=== PATIENT | male | born 1975 | race Caucasian/White ===

== ENCOUNTER 2017-02-04 10:02 | Outpatient (CLI) | payer OTHER ==
[2017-02-04 10:50] LABS: ALBUMIN/GLOBULIN RATIO 1.5 (1.0-2.2); BILIRUBIN,TOTAL 0.7 mg/dL (0.2-1.0); BUN - BLOOD UREA NITROGEN 20 mg/dL (6-20); CALCIUM 9.1 mg/dL (8.5-10.3); CARBON DIOXIDE - CO2 28 mmol/L (21-32); CHLORIDE 104 mmol/L (101-111); CHOL/HDL RATIO 4.9 (<5.0); CHOLESTEROL 212 mg/dL; CREATININE 0.8 mg/dL (0.6-1.2); GFR - MDRD 106 (>89); GLUCOSE 134 mg/dL (70-100); HDL CHOLESTEROL 43 mg/dL; LDL/HDL RATIO 3.5 (<3.6); SODIUM 139 mmol/L (135-145); TOTAL PROTEIN 7.7 g/dL (6.7-8.2); TRIGLYCERIDES 101 mg/dL; VLDL CHOLESTEROL 20 mg/dL
[2017-02-04 10:53] LABS: BASOPHILS # (AUTO) 0.1 10^3/uL (0.0-0.1); BASOPHILS % (AUTO) 0.8 %; EOSINOPHILS # (AUTO) 0.3 10^3/uL (0.0-0.7); EOSINOPHILS % (AUTO) 3.2 %; HCT - HEMATOCRIT 41.6 % (42.0-52.0); HGB - HEMOGLOBIN 14.3 g/dL (14.0-18.0); LYMPHOCYTES # (AUTO) 2.7 10^3/uL (1.5-3.5); LYMPHOCYTES % (AUTO) 35.3 %; MEAN CORPUSCULAR HGB CONC 34.4 g/dL (32.0-36.0); MEAN CORPUSCULAR VOLUME 84.3 fL (80.0-94.0); MEAN PLATELET VOLUME 8.8 fL (7.4-11.4); MONOCYTES # (AUTO) 0.7 10^3/uL (0.0-1.0); MONOCYTES % (AUTO) 9.1 %; NEUTROPHILS % (AUTO) 51.6 %; RED BLOOD COUNT 4.93 10^6/uL (4.70-6.10); RED CELL DISTRIBUTION WIDTH 12.8 % (12.0-15.0); UNCORRECTED WHITE BLOOD COUNT 7.8 x10^3/uL; WHITE BLOOD COUNT 7.8 x10^3/uL (4.8-10.8)
[2017-02-04 11:12] LABS: HEMOGLOBIN A1C 0.84 g/dL
== END 2017-02-04 10:03 | disposition home or self-care (01) ==
LOC: LAB 10:02
PROVIDERS: ATTEND Physician Assistant Medical
DX: R19.7 Diarrhea, unspecified (principal); E78.2 Mixed hyperlipidemia
CPT/HCPCS: 36415; 80053; 80061; 83036; 85025; 85651; 86140

== ENCOUNTER 2017-02-06 08:00 | Outpatient (CLI) | payer OTHER ==
[2017-02-08 22:31] LABS: TEST RESULT REPORT (())
== END 2017-02-06 08:01 | disposition home or self-care (01) ==
LOC: LAB.R 08:00
PROVIDERS: ATTEND Physician Assistant Medical
DX: R19.7 Diarrhea, unspecified (principal); E78.2 Mixed hyperlipidemia
CPT/HCPCS: 81599; 82705; 83630; 87045; 87046; 87177; 87209; 87329; 87493

== ENCOUNTER 2017-06-05 11:17 | Outpatient (CLI) | payer OTHER ==
[2017-06-05 11:48] LABS: HEMOGLOBIN A1C 1.13 g/dL
== END 2017-06-05 11:18 | disposition home or self-care (01) ==
LOC: LAB 11:17
PROVIDERS: ATTEND Physician Assistant Medical
DX: E11.9 Type 2 diabetes mellitus without complications (principal)
CPT/HCPCS: 36415; 83036

== ENCOUNTER 2017-09-30 08:57 | Outpatient (CLI) | payer OTHER ==
[2017-09-30 09:45] LABS: HB2 TOTAL 15.8 g/dL; HEMOGLOBIN A1C 0.81 g/dL; HEMOGLOBIN A1C % 6.8 % (4.6-6.2)
[2017-09-30 09:52] LABS: ALBUMIN 4.5 g/dL (3.2-5.5); ALBUMIN/GLOBULIN RATIO 1.4 (1.0-2.2); BILIRUBIN,TOTAL 0.9 mg/dL (0.2-1.0); CALCIUM 9.5 mg/dL (8.5-10.3); CREATININE 0.9 mg/dL (0.6-1.2); TOTAL PROTEIN 7.8 g/dL (6.7-8.2)
== END 2017-09-30 08:58 | disposition home or self-care (01) ==
LOC: LAB 08:57
PROVIDERS: ATTEND Physician Assistant Medical
DX: R22.0 Localized swelling, mass and lump, head (principal); R03.0 Elevated blood-pressure reading, without diagnosis of hypertension; E11.9 Type 2 diabetes mellitus without complications
CPT/HCPCS: 36415; 80053; 83036

== ENCOUNTER 2017-12-23 08:47 | Outpatient (CLI) | payer OTHER ==
[2017-12-23 15:58] LABS: ALBUMIN 4.5 g/dL (3.2-5.5); ALBUMIN/GLOBULIN RATIO 1.3 (1.0-2.2); ALKALINE PHOSPHATASE 56 IU/L (42-121); ALT ALANINE AMINOTRANSFERASE 31 IU/L (10-60); AST ASPARTATE AMINOTRANSFERASE 22 IU/L (10-42); BILIRUBIN,TOTAL 0.8 mg/dL (0.2-1.0); BUN - BLOOD UREA NITROGEN 19 mg/dL (6-20); CALCIUM 9.5 mg/dL (8.5-10.3); CARBON DIOXIDE - CO2 26 mmol/L (21-32); CHLORIDE 100 mmol/L (101-111); CHOL/HDL RATIO 5.2 (<5.0); CHOLESTEROL 241 mg/dL; CREATININE 0.8 mg/dL (0.6-1.2); GFR - MDRD 105 (>89); GLUCOSE 148 mg/dL (70-100); HDL CHOLESTEROL 46 mg/dL; LDL CHOLESTEROL,CALCULATED 165 mg/dL; LDL/HDL RATIO 3.6 (<3.6); SODIUM 135 mmol/L (135-145); TOTAL PROTEIN 7.9 g/dL (6.7-8.2); VLDL CHOLESTEROL 30 mg/dL
[2017-12-23 16:05] LABS: BASOPHILS # (AUTO) 0.1 10^3/uL (0.0-0.1); BASOPHILS % (AUTO) 1.2 %; EOSINOPHILS # (AUTO) 0.4 10^3/uL (0.0-0.7); EOSINOPHILS % (AUTO) 4.5 %; HGB - HEMOGLOBIN 14.5 g/dL (14.0-18.0); LYMPHOCYTES # (AUTO) 2.7 10^3/uL (1.5-3.5); LYMPHOCYTES % (AUTO) 34.8 %; MEAN CORPUSCULAR HEMOGLOBIN 28.3 pg (27.0-31.0); MEAN CORPUSCULAR HGB CONC 33.5 g/dL (32.0-36.0); MEAN CORPUSCULAR VOLUME 84.4 fL (80.0-94.0); MEAN PLATELET VOLUME 9.5 fL (7.4-11.4); MONOCYTES # (AUTO) 0.8 10^3/uL (0.0-1.0); MONOCYTES % (AUTO) 9.9 %; NEUTROPHILS # (AUTO) 3.9 10^3/uL (1.5-6.6); NEUTROPHILS % (AUTO) 49.6 %; PLT - PLATELET COUNT 271 10^3/uL (130-450); RED BLOOD COUNT 5.14 10^6/uL (4.70-6.10); RED CELL DISTRIBUTION WIDTH 12.6 % (12.0-15.0); WHITE BLOOD COUNT 7.8 x10^3/uL (4.8-10.8)
[2017-12-23 16:35] LABS: HB2 TOTAL 16.4 g/dL; HEMOGLOBIN A1C 0.98 g/dL; HEMOGLOBIN A1C % 7.6 % (4.6-6.2)
== END 2017-12-23 08:48 | disposition home or self-care (01) ==
LOC: LAB.R 08:47
PROVIDERS: ATTEND Physician Assistant Medical
DX: Z00.00 Encounter for general adult medical examination without abnormal findings (principal); Z79.899 Other long term (current) drug therapy; E78.2 Mixed hyperlipidemia; E11.9 Type 2 diabetes mellitus without complications
CPT/HCPCS: 80053; 80061; 83036; 83721; 84443; 85025

== ENCOUNTER 2018-04-28 09:53 | Outpatient (CLI) | payer OTHER ==
[2018-04-28 14:12] LABS: BILIRUBIN,URINE NEGATIVE (NEGATIVE); CLARITY,URINE CLEAR (CLEAR); GLUCOSE, URINE (UA) NEGATIVE (NEGATIVE); KETONES,URINE (UA) NEGATIVE (NEGATIVE); LEUKOCYTE ESTERASE, URINE NEGATIVE (NEGATIVE); NITRITE,URINE NEGATIVE (NEGATIVE); OCCULT BLOOD,URINE TRACE-LYSE (NEGATIVE); PROTEIN,URINE NEGATIVE (NEGATIVE); UROBILINOGEN,URINE 0.2 (NORMAL) E.U./dL (NORMAL)
[2018-04-28 14:58] LABS: HB2 TOTAL 14.8 g/dL; HEMOGLOBIN A1C 0.78 g/dL
== END 2018-04-28 09:54 | disposition home or self-care (01) ==
LOC: LAB.R 09:53
PROVIDERS: ATTEND Physician Assistant Medical
DX: Z00.00 Encounter for general adult medical examination without abnormal findings (principal); E11.9 Type 2 diabetes mellitus without complications; Z79.899 Other long term (current) drug therapy
CPT/HCPCS: 81001; 81003; 82947; 83036; 87086

== ENCOUNTER 2018-11-24 11:05 | Outpatient (CLI) | payer OTHER ==
[2018-11-24 17:20] LABS: ALBUMIN 4.3 g/dL (3.2-5.5); ALBUMIN/GLOBULIN RATIO 1.3 (1.0-2.2); BILIRUBIN,TOTAL 0.6 mg/dL (0.2-1.0); CREATININE 0.8 mg/dL (0.6-1.2); TOTAL PROTEIN 7.5 g/dL (6.7-8.2)
[2018-11-24 18:47] LABS: HB2 TOTAL 15.6 g/dL; HEMOGLOBIN A1C 0.93 g/dL; HEMOGLOBIN A1C % 7.6 % (4.6-6.2)
== END 2018-11-24 11:06 | disposition home or self-care (01) ==
LOC: LAB.F 11:05
PROVIDERS: ATTEND Registered Nurse
DX: E11.9 Type 2 diabetes mellitus without complications (principal)
CPT/HCPCS: 36415; 80053; 82043; 83036

== ENCOUNTER 2019-04-24 17:24 | Outpatient (CLI) | payer OTHER ==
--- NOTE | 2019-04-26 05:47 | XRAY Report ---
Reason: SHOULDER PAIN, RT Procedure Date: 04/24/2019 Accession Number: [id number] / [id number] Procedure: XR - Shoulder 3 View RT CPT Code: FULL RESULT: EXAM: RIGHT SHOULDER RADIOGRAPHY EXAM DATE: 04/24/2019 05:42 PM HISTORY: SHOULDER PAIN, RT COMPARISON: SHOULDER 3 VIEW RT 05/03/2014 9:49 AM TECHNIQUE: 3 Views FINDINGS: Glenohumeral Joint: No significant abnormality. AC Joint: Mild degenerative arthritis similar to previous. No fracture. There is questionably some mild calcification anterior lateral to the greater tuberosity which could be secondary to mild rotator cuff calcific tendinopathy. IMPRESSION: Question of mild calcific tendinopathy of the rotator cuff. Mild degenerative arthritis of the AC joint. Otherwise unremarkable. RADIA
== END 2019-04-24 17:25 | disposition home or self-care (01) ==
LOC: DI 17:24
PROVIDERS: ATTEND Family Medicine
DX: M19.011 Primary osteoarthritis, right shoulder (principal)

== ENCOUNTER 2019-06-22 11:12 | Outpatient (CLI) | payer OTHER ==
[2019-06-22 11:46] LABS: BASOPHILS # (AUTO) 0.1 10^3/uL (0.0-0.1); EOSINOPHILS # (AUTO) 0.3 10^3/uL (0.0-0.7); EOSINOPHILS % (AUTO) 3.1 %; HGB - HEMOGLOBIN 14.7 g/dL (14.0-18.0); LYMPHOCYTES # (AUTO) 2.9 10^3/uL (1.5-3.5); LYMPHOCYTES % (AUTO) 34.6 %; MEAN CORPUSCULAR HEMOGLOBIN 28.3 pg (27.0-31.0); MEAN CORPUSCULAR HGB CONC 33.2 g/dL (32.0-36.0); MEAN CORPUSCULAR VOLUME 85.2 fL (80.0-94.0); MEAN PLATELET VOLUME 10.5 fL (7.4-11.4); MONOCYTES # (AUTO) 0.8 10^3/uL (0.0-1.0); NEUTROPHILS # (AUTO) 4.3 10^3/uL (1.5-6.6); NEUTROPHILS % (AUTO) 50.9 %; PLT - PLATELET COUNT 279 10^3/uL (130-450); RED CELL DISTRIBUTION WIDTH 12.4 % (12.0-15.0); WHITE BLOOD COUNT 8.4 x10^3/uL (4.8-10.8)
[2019-06-22 12:01] LABS: ALBUMIN 4.5 g/dL (3.2-5.5); ALBUMIN/GLOBULIN RATIO 1.3 (1.0-2.2); ALKALINE PHOSPHATASE 48 IU/L (42-121); ALT ALANINE AMINOTRANSFERASE 31 IU/L (10-60); AST ASPARTATE AMINOTRANSFERASE 21 IU/L (10-42); BILIRUBIN,TOTAL 0.9 mg/dL (0.2-1.0); BUN - BLOOD UREA NITROGEN 16 mg/dL (6-20); CARBON DIOXIDE - CO2 28 mmol/L (21-32); CHLORIDE 99 mmol/L (101-111); CHOL/HDL RATIO 5.2 (<5.0); CHOLESTEROL 266 mg/dL; CREATININE 0.8 mg/dL (0.6-1.2); GFR - MDRD 104 (>89); GLUCOSE 146 mg/dL (70-100); HB2 TOTAL 14.7 g/dL; HDL CHOLESTEROL 51 mg/dL; HEMOGLOBIN A1C 0.93 g/dL; HEMOGLOBIN A1C % 7.9 % (4.6-6.2); LDL CHOLESTEROL,CALCULATED 176 mg/dL; LDL/HDL RATIO 3.5 (<3.6); SODIUM 136 mmol/L (135-145); TOTAL PROTEIN 7.9 g/dL (6.7-8.2); VLDL CHOLESTEROL 39 mg/dL
== END 2019-06-22 11:13 | disposition home or self-care (01) ==
LOC: LAB 11:12
PROVIDERS: ATTEND Registered Nurse
DX: Z00.00 Encounter for general adult medical examination without abnormal findings (principal)
CPT/HCPCS: 36415; 80053; 80061; 83036; 83721; 84443; 85025

== ENCOUNTER 2019-07-04 13:35 | Outpatient (CLI) | payer OTHER | END 2019-07-04 13:36 | disposition home or self-care (01) | LOC: RT 13:35 | PROVIDERS: ATTEND Orthopaedic Surgery Sports Medicine | DX: Z01.810 Encounter for preprocedural cardiovascular examination (principal); M75.101 Unspecified rotator cuff tear or rupture of right shoulder, not specified as traumatic; E11.9 Type 2 diabetes mellitus without complications | CPT/HCPCS: 93005 ==

== ENCOUNTER 2019-07-11 06:15 | Day surgery (SDC) | payer OTHER ==
[2019-07-11] MEDS ORDERED: fentaNYL 100 MCG/2 ML VIAL IVP ONE (06:16)
[2019-07-11] MEDS ORDERED: PROPOFOL 200 MG/20 ML VIAL IVP ONE (06:16)
[2019-07-11] MEDS ORDERED: KETOROLAC 30 MG/ML VIAL IVP ONE (06:16)
[2019-07-11] MEDS ORDERED: ROCURONIUM 50 MG/5 ML VIAL IVP ONE (06:16)
[2019-07-11] MEDS ORDERED: MIDAZOLAM 2 MG/2 ML VIAL IVP ONE (06:16)
[2019-07-11] MEDS ORDERED: CEFAZOLIN SODIUM IN 0.9 % NACL 2 GM/100 ML BAG IV ONE (06:29)
[2019-07-11] MEDS ORDERED: LACTATED RINGERS 1,000 ML IV ONE ×2 (06:35→10:00)
[2019-07-11] MEDS ORDERED: BUPIVACAINE 0.25% PF 30 ML VIAL ONE (06:57)
[2019-07-11] MEDS ORDERED: EPINEPHrine 1 MG/ML AMP ONE (06:57)
--- NOTE | 2019-07-11 07:03 | ANESTHESIA ---
Pre-Anesthesia VS, & Labs - Diagnosis right rotator cuff tear - Procedure right rotator cuff repair Vital Signs: Temp Pulse Resp BP Pulse Ox 36.2 C L 84 16 164/100 H 95 07/11/19 06:37 07/11/19 06:37 07/11/19 06:37 07/11/19 06:37 07/11/19 06:37 Height 5 ft 7 in Weight (kg) 91 kg - Lab Results Current Lab Results: Laboratory Tests 07/11/19 06:48: POC Whole Bld Glucose 130 H Home Medications and Allergies Home Medications: Ambulatory Orders Glimepiride 2 mg PO BID 07/04/19 Lisinopril 2.5 mg PO DAILY 07/04/19 Metformin HCl 2,000 mg PO BID 07/04/19 Glimepiride 2 mg PO BID 07/04/19 Lisinopril 2.5 mg PO DAILY 07/04/19 Metformin HCl 2,000 mg PO BID 07/04/19 Allergies/Adverse Reactions: Allergies Allergy/AdvReac Type Severity Reaction Status Date / Time No Known Drug Allergies Allergy Verified 04/04/15 16:39 Anes History & Medical History - Anesthetic History Anesthesia Complications: reports: No previous complications Family history of Anesthesia Complications: Denies Family history of Malignant Hyperthermia: Denies - Medical History Cardiovascular: reports: Hypertension, High cholesterol, Murmur Pulmonary: reports: None Gastrointestinal: reports: None Urinary: reports: None Neuro: reports: None Musculoskeletal: reports: Chronic back pain Endocrine/Autoimmune: reports: Type 2 diabetes Blood Disorders: reports: None Skin: reports: None Smoking Status: Former smoker Psychosocial: reports: No issues indicated - Surgical History General: Other Orthopedic: Other Exam General: Alert, Oriented x3, Cooperative, No acute distress Dental: WNL Mouth Openin Fingerbreadth Neck Mobility: Normal Mallampati classification: II Thyromental Distance: 4-6 cm Respiratory: Lungs clear, Normal breath sounds, No respiratory distress, No accessory muscle use Cardiovascular: Regular rate, Normal S1, Normal S2, No murmurs Abdomen: Normal bowel sounds, Soft, No tenderness, No hepatospenomegaly, No masses Extremities: No clubbing, No cyanosis, No edema, Normal pulses, No tenderness/swelling Neurological: Normal gait, Normal speech, Strength at 5/5 X4 ext, Normal tone, Sensation intact, Cranial nerves 3-12 NL, Reflexes 2+ Mental/Cognitive Status: Alert/Oriented X3, Normal for patient Cognitive Status: Within normal limits Plan Anesthesia Type: General Regional Block: Per Surgeon's request for Post Op pain control Consent for Procedure(s) Verified and Reviewed: Yes Code Status: Attempt Resuscitation ASA classification: 2-Mild systemic disease Is this case an emergency?: No
[2019-07-11] MEDS ORDERED: EPINEPHrine 1 MG/ML AMP IR ONE (08:35)
--- NOTE | 2019-07-11 08:41 | ANESTHESIA PROCEDURE NOTE ---
Diagnosis: right rotator cuff tear. Procedure: right interscalene brachial plexus block Consent for Procedure(s) Verified and Reviewed: Yes Height and Weight: Height 5 ft 7 in Weight (kg) 91 kg Vital Signs: Temp Pulse Resp BP Pulse Ox 36.2 C L 84 16 164/100 H 95 07/11/19 06:37 07/11/19 06:37 07/11/19 06:37 07/11/19 06:37 07/11/19 06:37 Allergies No Known Drug Allergies Allergy (Verified 04/04/15 16:39) Requesting Provider: Dr. Bellamy ASA classification: 2-Mild systemic disease Is this case an emergency?: No Anes. Monitoring and Equipment: Non-invasive BP, Pulse oximetery Anes. Procedure Start Time: 07:30 Anes. Procedure Stop Time: 07:38 Procedure Notes: After consent obtained and bedside timeout, the patient's right neck was prepped with chloroprep. 100mcg fentanyl and 2mg versed was given IV for patient comfort. The right brachial plexus was identified between the scalene muscles us ing ultrasound. Under ultrasound guidance, a 22G stimiplex needle was directed to the BP sheath and a total of 30ml of 0.5% ropiviciane and 4mg decadron was injected. Adequate spread was noted and the patient tolerated well. Full evaluation is pending.
[2019-07-11] MEDS ORDERED: BUPIVACAINE 0.25% PF 30 ML VIAL SUBQ ONE ×2 (08:52→10:05)
[2019-07-11] MEDS ORDERED: oxyCODONE 5 MG TABLET PO PRN (10:40)
[2019-07-11] MEDS ORDERED: ONDANSETRON 4 MG/2 ML VIAL IVP PRN (10:40)
--- NOTE | 2019-07-11 10:40 | IMMEDIATE POSTOPERATIVE NOTE ---
Immediate Postoperative Note - Procedure Note Procedure Date: 07/11/19 Pre-Op Diagnosis: Right shoulder rotator cuff tear, impingement Procedure: Right Arthroscopic rotator cuff repair subacromial decompression Post-Op Diagnosis: Same Primary Surgeon: Deacon Bellamy MD Leach Cell Operator: None Anesthesia Type: General ET tube, Local, Regional block Findings: As above Estimated Blood Loss (in cc): 50 Specimens and Cultures: None Plan of Care: Patient tolerated procedure well instrument and sponge counts correct patient transferred to recovery room in stable condition Patient will follow delayed rotator cuff repair protocol and avoid right upper extremity lift push pull he will avoid right shoulder active motion he would be in sling with pillow and less stretching elbow wrist and hand which he may do at rest. He would keep dressings clean dry and intact 3 days. After that time he may use for waterproof Band-Aids on the 4 incision sites for showers but should still not get wounds wet. Should replace waterproof Band-Aids after shower. Follow-up 10 to 14 days or sooner should problems questions or worsening condition arise.
[2019-07-11] MEDS ORDERED: ONDANSETRON 4 MG/2 ML VIAL ONE (11:33)
[2019-07-11 12:19] VITALS: BP 142/89
--- NOTE | 2019-07-11 14:36 | OPERATIVE REPORT ---
DATE OF SERVICE: 07/11/2019 Physician: Amol Bellamy MD SURGEON: Amol Bellamy MD REVIEW CONSULTANT: None. ANESTHESIOLOGIST: Grabiel Encarnacion CRNA. ANESTHESIA: General endotracheal anesthesia, as well as right side regional block under ultrasound g uidance shoulder as well as 30 mL of 0.25% plain Marcaine local. ESTIMATED BLOOD LOSS: Less than 50 mL FLUIDS: 1200 mL lactated Ringer's. ORTHOPEDIC IMPLANTS: [email or web address] Triple Play [employer] anchors x2 as well as three #2 Fib erWire sutures. INTRAOPERATIVE COMPLICATIONS: None noted. INTRAOPERATIVE FINDINGS: Patient is noted to have a retracted full-thickness rotator cuff tear of carroll praspinatus. Retraction is medial to the glenoid rim. It is also somewhat posterior. With release is able to be freed up to get to the near anatomic footprint. There is good fixation as examined aft er repair with motion of the shoulder and probing. Biceps okay, superior aspect of the infraspinatus generally okay, subscapularis okay, minimal chondromalacia glenohumeral joint. HISTORY OF PRESENT ILLNESS AND INDICATIONS: Patient is a 44-year-old gentleman, a number of months a fter his right shoulder injury where he sustained a rotator cuff tear. He is indicated for operative treatment. Please see risks, benefits, alternatives previously reviewed with him. These are again highlighted with him and his in the preoperative care unit. Their questions are answered, verba lized understanding and satisfaction with the plan and wish to proceed with operative treatment. Of note, patient's A1c was somewhat above ideal prior to surgery, though given the chronicity of his injury, it is felt that prolonged waiting could be detrimental to his overall outcome. He has had hi s diabetes closely managed by his primary care practitioner and will continue to do so, especially in the immediate postoperative period to attempt to minimize associated risks. On 07/11/2019, patient identified in the preoperative care unit. He identified his right shoulder as the operative site. This is signed by the operating surgeon. DESCRIPTION OF PROCEDURE: Patient is brought to the operating room after ultrasound-guided regional block on the right shoulder and is placed supine on the operating table. General anesthesia is admin istered and then he is placed left side down, lateral decubitus position with appropriately placed Be anbag positioner and down pad, which is gel as well as axillary roll to avoid encumbrance of the axil la. Head, neck and extremities are placed in anatomically comfortable and safe position to avoid per ipheral nerve stretch compression. At this time, patient's right upper extremity is pre-scrubbed fir st with Hibiclens solution, then alcohol followed by ChloraPrep and draped under sterile conditions. A combination of 10 or 15 pounds of traction are used during various portions of the case. At this point, surgical pause identifies right shoulder as operative site. At this point, local anes thetic is infused anteriorly, posteriorly and laterally. A small incision is made posteriorly. Scop e is introduced into the glenohumeral joint. This is examined. Please see diagnostic arthroscopy an d diagnostic operative findings. At this point, scope is reintroduced into the subacromial space and is noted to have significant burs itis and adhesions. This is debrided using a combination of meniscal shaver and arthroscopic heating device with appropriate flow to avoid thermal injury. The area above and below the rotator cuff is elevated with an elevator and shaved, keeping instrument aiming away from the cuff itself. Subacromi al decompression is accomplished using a combination of shaver ultimately, then heating device and th en a adrienne to convert to a type 1 acromion. At this point, the rotator cuff footprint is cleaned with a shaver and then a bur and medialized 1-2 mm. The bone is noted to be firm and integrity of the carroll bsurface bone is left. At this point, the free edge of the rotator cuff is sharply debrided and then it is pulled and noted to be reducible to the near anatomic footprint at which point the posterior V component of the tear h as 3 sutures placed, two of which are [id number] and then a simple suture to close down the post erior aspect thereby also bringing the posteriorly displaced cuff anterior. This closes down the hol e and then subsequently 2 sequential anchors are placed in the rotator cuff footprint just posterior to the biceps groove and then additional further posterior and then a combination of 5 simple sutures and 1 horizontal mattress suture are used to close down the remaining rotator cuff tear. This reduc es the cuff to the footprint. These suture limbs are tied and then cut. The rotator cuff is examine d and noted to be in good position with good integrity. At this point, copious irrigation and hemost asis is performed in the subacromial space. This is evacuated. Local anesthetic is infused around t he incisions. Arthroscopic portals are closed using interrupted nylon suture. It should be noted th at an auxiliary anterolateral portal site is created, as well as a direct lateral and anterior portal are created to do to work noted above. Patient's skin is washed and dried. Xeroform dressing applied. Dry sterile dressings applied. Micr opore tape is applied. Patient is placed in abduction pillow sling. Patient tolerated the procedure well. Instrument and sponge counts are correct. Patient is transfer red to recovery room in stable condition. Patient will follow a delayed right shoulder rotator cuff repair protocol. Attempt is made to contact patient's in the waiting room. She is not available there. Postoperative instructions previously reviewed with patient, patient's and also provided in writ ten format. Patient will follow up 10-14 days in the clinic or sooner should problems, questions or worsening condition arise. Patient will be nonweightbearing to right upper extremity. He will be in a sling with a pillow. Elb ow, wrist and hand may be stretched when he is at rest, but would avoid active shoulder motion or any lift, push, pull of right upper extremity. He will keep the dressings clean, dry, and intact, 3 day s from now he can put waterproof Band-Aids on over the 4 incisions, but keep the wounds themselves dr watkins. He will follow up sooner than the followup scheduled visit should problems or questions arise. TD: 07/11/2019 11:24
== END 2019-07-11 06:16 | disposition home or self-care (01) ==
LOC: SDS 06:15
PROVIDERS: ATTEND Orthopaedic Surgery Sports Medicine
PROC: 0RHK44Z Insertion of Internal Fixation Device into Left Shoulder Joint, Percutaneous Endoscopic Approach (ICD-10-PCS; 2019-07-11)
PROC: 0RNK4ZZ Release Left Shoulder Joint, Percutaneous Endoscopic Approach (ICD-10-PCS; 2019-07-11)
PROC: 0LQ24ZZ Repair Left Shoulder Tendon, Percutaneous Endoscopic Approach (ICD-10-PCS; principal; 2019-07-11 07:30)
DX: M75.121 Complete rotator cuff tear or rupture of right shoulder, not specified as traumatic (principal); E11.9 Type 2 diabetes mellitus without complications; I10 Essential (primary) hypertension; Z79.84 Long term (current) use of oral hypoglycemic drugs
CPT/HCPCS: 29826; 29827; C1713; J0690; J7120

== ENCOUNTER 2019-10-16 11:52 | Outpatient (CLI) | payer OTHER ==
[2019-10-16 12:26] LABS: CALCIUM 8.9 mg/dL (8.5-10.3); CREATININE 0.8 mg/dL (0.6-1.2)
[2019-10-16 12:34] LABS: CREATININE,URINE 137.5 mg/dL; MICROALBUM/CREATININE RATIO,UR 21.1 ug/mg (<30.0); MICROALBUMIN,URINE 2.9 mg/dL (0-300.0)
[2019-10-16 12:49] LABS: HEMOGLOBIN A1C 0.79 g/dL
== END 2019-10-16 11:53 | disposition home or self-care (01) ==
LOC: LAB 11:52
PROVIDERS: ATTEND Registered Nurse
DX: I10 Essential (primary) hypertension (principal)
CPT/HCPCS: 36415; 80048; 82043; 82570; 83036

== ENCOUNTER 2020-08-25 15:50 | Outpatient (CLI) | payer OTHER | END 2020-08-25 23:59 | disposition home or self-care (01) | LOC: COV 15:50 | PROVIDERS: ATTEND Family Medicine | DX: Z20.822 Contact with and (suspected) exposure to COVID-19 (principal) ==

== ENCOUNTER 2020-09-12 18:12 | Outpatient (CLI) | payer OTHER ==
--- NOTE | 2020-09-12 13:39 | XRAY Report ---
PROCEDURE: Elbow 3 View LT INDICATIONS: LATERAL EPICONDYLITIS TECHNIQUE: 3 views of the elbow were acquired. COMPARISON: None. FINDINGS: Bones: No fractures or dislocations. No suspicious bony lesions. Spurring at the tip of the olecra non Soft tissues: No elbow joint effusion. No suspicious soft tissue calcifications. IMPRESSION: Spurring at the tip of the olecranon suggestive of chronic triceps tendinopathy Elsewhere, no acute bony abnormality. If the patient's pain or other symptoms persist, consider furth er evaluation with MRI. Reviewed by: Eb Ortez MD on 09/12/2020 1:38 PM PST Approved by: Eb Ortez MD on 09/12/2020 1:38 PM PST Station ID: [id number]
== END 2020-09-12 23:59 | disposition home or self-care (01) ==
LOC: DI.N 18:12
PROVIDERS: ATTEND Physician Assistant
DX: M77.10 Lateral epicondylitis, unspecified elbow (principal)

== ENCOUNTER 2020-11-21 13:18 | Outpatient (CLI) | payer OTHER ==
[2020-11-21 13:48] LABS: BASOPHILS # (AUTO) 0.1 10^3/uL (0.0-0.1); BASOPHILS % (AUTO) 0.6 %; EOSINOPHILS # (AUTO) 0.4 10^3/uL (0.0-0.7); HCT - HEMATOCRIT 42.9 % (42.0-52.0); HGB - HEMOGLOBIN 14.8 g/dL (14.0-18.0); LYMPHOCYTES # (AUTO) 2.6 10^3/uL (1.5-3.5); LYMPHOCYTES % (AUTO) 26.4 %; MEAN CORPUSCULAR HGB CONC 34.5 g/dL (32.0-36.0); MEAN PLATELET VOLUME 10.4 fL (7.4-11.4); MONOCYTES # (AUTO) 0.9 10^3/uL (0.0-1.0); MONOCYTES % (AUTO) 9.1 %; NEUTROPHILS # (AUTO) 5.9 10^3/uL (1.5-6.6); NEUTROPHILS % (AUTO) 59.7 %; PLT - PLATELET COUNT 273 10^3/uL (130-450); RED BLOOD COUNT 5.11 10^6/uL (4.70-6.10); RED CELL DISTRIBUTION WIDTH 12.2 % (12.0-15.0); WHITE BLOOD COUNT 9.9 x10^3/uL (4.8-10.8)
[2020-11-21 14:02] LABS: ALBUMIN 4.7 g/dL (3.2-5.5); ALBUMIN/GLOBULIN RATIO 1.6 (1.0-2.2); ALKALINE PHOSPHATASE 55 IU/L (42-121); ALT ALANINE AMINOTRANSFERASE 39 IU/L (10-60); AST ASPARTATE AMINOTRANSFERASE 22 IU/L (10-42); BILIRUBIN,TOTAL 1.1 mg/dL (0.2-1.0); BUN - BLOOD UREA NITROGEN 14 mg/dL (6-20); CALCIUM 9.2 mg/dL (8.5-10.3); CARBON DIOXIDE - CO2 26 mmol/L (21-32); CHLORIDE 101 mmol/L (101-111); CHOL/HDL RATIO 2.8 (<5.0); CHOLESTEROL 137 mg/dL; CREATININE 0.8 mg/dL (0.6-1.2); GFR - MDRD 104 (>89); GLUCOSE 103 mg/dL (70-100); HDL CHOLESTEROL 49 mg/dL; LDL CHOLESTEROL,CALCULATED 70 mg/dL; LDL/HDL RATIO 1.4 (<3.6); POTASSIUM 3.8 mmol/L (3.5-5.0); SODIUM 138 mmol/L (135-145); TOTAL PROTEIN 7.6 g/dL (6.7-8.2); TRIGLYCERIDES 90 mg/dL; VLDL CHOLESTEROL 18 mg/dL
[2020-11-21 14:14] LABS: THYROID STIMULATING HORMONE 1.34 uIU/mL (0.34-5.60)
[2020-11-21 20:35] LABS: ESTIMATED AVERAGE GLUCOSE 214 mg/dL (70-100); HEMOGLOBIN A1c% 9.1 % (4.27-6.07)
== END 2020-11-21 13:19 | disposition home or self-care (01) ==
LOC: LAB 13:18
PROVIDERS: ATTEND Registered Nurse
DX: I10 Essential (primary) hypertension (principal); E11.9 Type 2 diabetes mellitus without complications; E78.2 Mixed hyperlipidemia
CPT/HCPCS: 36415; 80053; 80061; 83036; 83721; 84443; 85025

== ENCOUNTER 2021-02-23 16:25 | Outpatient (CLI) | payer OTHER ==
[2021-02-23 19:08] LABS: ESTIMATED AVERAGE GLUCOSE 186 mg/dL (70-100); HEMOGLOBIN A1c% 8.1 % (4.27-6.07)
== END 2021-02-23 16:26 | disposition home or self-care (01) ==
LOC: LAB 16:25
PROVIDERS: ATTEND Registered Nurse
DX: E11.9 Type 2 diabetes mellitus without complications (principal)
CPT/HCPCS: 36415; 83036

== ENCOUNTER 2021-03-17 08:00 | Outpatient (CLI) | payer OTHER | END 2021-03-17 23:59 | disposition home or self-care (01) | LOC: LAB 08:00 | PROVIDERS: ATTEND Nurse Practitioner | DX: E11.65 Type 2 diabetes mellitus with hyperglycemia (principal) | CPT/HCPCS: 36415; 81599; 84681; 86341 ==

== ENCOUNTER 2021-06-15 16:20 | Outpatient (CLI) | payer OTHER ==
[2021-06-15 20:22] LABS: ESTIMATED AVERAGE GLUCOSE 180 mg/dL (70-100); HEMOGLOBIN A1c% 7.9 % (4.27-6.07)
== END 2021-06-15 16:21 | disposition home or self-care (01) ==
LOC: LAB 16:20
PROVIDERS: ATTEND Nurse Practitioner
DX: E11.65 Type 2 diabetes mellitus with hyperglycemia (principal)
CPT/HCPCS: 36415; 83036

== ENCOUNTER 2021-08-17 08:00 | Outpatient (CLI) | payer OTHER | END 2021-08-17 23:59 | LOC: LAB.N 08:00 | PROVIDERS: ATTEND Registered Nurse | DX: U07.1 COVID-19 (principal) | CPT/HCPCS: 87275; 87276 ==

== ENCOUNTER 2021-10-31 10:52 | Outpatient (CLI) | payer OTHER ==
[2021-10-31 11:34] LABS: CREATININE,URINE 29.3 mg/dL; MICROALBUM/CREATININE RATIO,UR 23.9 ug/mg (<30.0); MICROALBUMIN,URINE 0.7 mg/dL (0-300.0)
[2021-10-31 11:41] LABS: BUN - BLOOD UREA NITROGEN 17 mg/dL (6-20); CARBON DIOXIDE - CO2 26 mmol/L (21-32); CHLORIDE 100 mmol/L (101-111); CHOL/HDL RATIO 2.7 (<5.0); CHOLESTEROL 139 mg/dL; CREATININE 0.8 mg/dL (0.6-1.2); GFR - MDRD 103 (>89); GLUCOSE 87 mg/dL (70-100); HDL CHOLESTEROL 51 mg/dL; LDL CHOLESTEROL,CALCULATED 75 mg/dL; LDL/HDL RATIO 1.5 (<3.6); POTASSIUM 3.9 mmol/L (3.5-5.0); SODIUM 137 mmol/L (135-145); TRIGLYCERIDES 66 mg/dL; VLDL CHOLESTEROL 13 mg/dL
[2021-10-31 14:00] LABS: ESTIMATED AVERAGE GLUCOSE 154 mg/dL (70-100)
== END 2021-10-31 10:53 | disposition home or self-care (01) ==
LOC: LAB 10:52
PROVIDERS: ATTEND Nurse Practitioner
DX: E11.65 Type 2 diabetes mellitus with hyperglycemia (principal); E78.2 Mixed hyperlipidemia
CPT/HCPCS: 36415; 80048; 80061; 82043; 82570; 83036; 83721

== ENCOUNTER 2022-02-07 19:18 | Outpatient (CLI) | payer OTHER ==
[2022-02-08 10:21] LABS: ESTIMATED AVERAGE GLUCOSE 128 mg/dL (70-100); HEMOGLOBIN A1c% 6.1 % (4.27-6.07)
== END 2022-02-07 19:19 | disposition home or self-care (01) ==
LOC: LAB 19:18
PROVIDERS: ATTEND Nurse Practitioner
DX: E11.65 Type 2 diabetes mellitus with hyperglycemia (principal)
CPT/HCPCS: 36415; 83036

== ENCOUNTER 2022-02-26 13:55 | Outpatient (CLI) | payer OTHER ==
[2022-02-26 19:54] LABS: BASOPHILS # (AUTO) 0.1 10^3/uL (0.0-0.1); EOSINOPHILS # (AUTO) 0.3 10^3/uL (0.0-0.7); HCT - HEMATOCRIT 43.5 % (42.0-52.0); HGB - HEMOGLOBIN 14.6 g/dL (14.0-18.0); LYMPHOCYTES # (AUTO) 2.7 10^3/uL (1.5-3.5); LYMPHOCYTES % (AUTO) 33.4 %; MEAN CORPUSCULAR HGB CONC 33.6 g/dL (32.0-36.0); MEAN CORPUSCULAR VOLUME 86.3 fL (80.0-94.0); MEAN PLATELET VOLUME 10.6 fL (7.4-11.4); MONOCYTES # (AUTO) 0.9 10^3/uL (0.0-1.0); MONOCYTES % (AUTO) 11.1 %; NEUTROPHILS # (AUTO) 4.1 10^3/uL (1.5-6.6); NEUTROPHILS % (AUTO) 50.4 %; PLT - PLATELET COUNT 307 10^3/uL (130-450); RED BLOOD COUNT 5.04 10^6/uL (4.70-6.10); RED CELL DISTRIBUTION WIDTH 12.3 % (12.0-15.0)
== END 2022-02-26 13:56 | disposition home or self-care (01) ==
LOC: LAB.S 13:55
PROVIDERS: ATTEND Registered Nurse
DX: N52.9 Male erectile dysfunction, unspecified (principal); R53.83 Other fatigue
CPT/HCPCS: 36415; 84402; 85025

== ENCOUNTER 2022-04-16 09:11 | Outpatient (CLI) | payer OTHER ==
[2022-04-16 09:55] VITALS: BP 126/80
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
== END 2022-04-16 09:12 | disposition home or self-care (01) ==
LOC: SC 09:11
PROVIDERS: ATTEND Nurse Practitioner Family
DX: G47.10 Hypersomnia, unspecified (principal); R53.83 Other fatigue; G47.8 Other sleep disorders; R06.83 Snoring; R06.81 Apnea, not elsewhere classified; E11.9 Type 2 diabetes mellitus without complications; I10 Essential (primary) hypertension; E66.3 Overweight; Z68.27 Body mass index [BMI] 27.0-27.9, adult; Z87.891 Personal history of nicotine dependence; Z79.84 Long term (current) use of oral hypoglycemic drugs; Z79.899 Other long term (current) drug therapy
CPT/HCPCS: 99203; 99212

== ENCOUNTER 2022-05-07 13:54 | Outpatient (CLI) | payer OTHER | END 2022-05-07 13:55 | disposition home or self-care (01) | LOC: SC 13:54 | PROVIDERS: ATTEND Nurse Practitioner Family | DX: G47.33 Obstructive sleep apnea (adult) (pediatric) (principal); R09.02 Hypoxemia | CPT/HCPCS: 95806 ==

== ENCOUNTER 2022-05-28 13:46 | Outpatient (CLI) | payer OTHER ==
[2022-05-28 14:12] VITALS: BP 120/70
--- NOTE | 2022-05-28 14:12 | SLEEP CARE CONSULTATION ---
Information from patient questionnaire entered by Trinidad Saniz. I have reviewed and concur with the information entered by Trinidad Sainz. This document represents the service I personally performed and the decisions made by me, Mahogany Peter ARNP. History of Present Illness Service Date and Time: 05/28/2022 1346 Initial [place] Sleepiness Scale score: 16 (04/2022) Current [place] Sleepiness Scale score: 16 (05/28/22) Additional HPI information: DK VERAS returns for follow up and results of the recently performed home sleep study. I explained the pathophysiology behind obstructive sleep apnea. We then spent quite a bit of time discussing different treatment options. For mild obstructive sleep apnea, surgery and oral appliance are alternatives to nasal CPAP therapy but in moderate or severe cases, nasal CPAP is the most effective and reliable treatment. Because apnea is primarily in supine position, then positional management therapy could be effective. Methods discussed such as positioning with pillows to prevent supine sleep. I reviewed the impact of weight changes on sleep apnea and strongly recommended losing weight. After some discussion, the patient opted to go with the nasal CPAP therapy. Nasal autoCPAP set at 4-15 cmH20 will be ordered with rationale explained. A manual titration study will be ordered if unable to find optimal pressure with office adjustments. I explained how CPAP machine works and what to expect when using the machine. Using CPAP every night in order to get used to it was emphasized. Patient advised to put CPAP mask on before getting into bed so as not to fall asleep wi thout CPAP. To assist acclimation to CPAP use, it could also be used for a short time during day while reading or watching TV. The patient was instructed to call the CPAP supplier to discuss any mechanical problem that may occur. If the mask given is uncomfortable or is difficult to keep on through the night even with adjustment, contact the CPAP supplier as many will replace with another mask style if notified before 30 days. If snoring or perceives is not getting enough air or too much air from the machine, notify this office. Patient counseled not drink alcohol less than 4 hours before bedtime as it can increase snoring and apnea. Patient was cautioned about risks of drowsy driving until sleepiness symptoms resolve. Patient denies drowsy driving. Sleep Study - Results Type of Sleep Study: Home sleep study (COMPLETED 05/07/2022) Prior sleep studies: No Polysomnography/Home Sleep Study results: Physician Impression: The quality of the study is good. The length of the study is [id number] (< 240 minutes). Please also see the tabulated and graphic data. 1. Obstructive Sleep Apnea-Hypopnea (ICD-10 G47.33), mild, with an AHI of 6.1/hr and ute SaO2 of 84%. During the study, the patient had 4 apneas (4 obstructive, 0 central, 0 mixed) and 15 hypopneas. The longest episode lasted 65.0 seconds. The respiratory events occurred almost exclusively during supine sleep (supine AHI was 31.9 and non-supine, 1.87). 2. Hypoxemia (ICD-10 R09.02), mild, with the lowest oxygen saturation of 84 % and 3.2 minutes with SaO2 under 90%. Baseline oxygen saturation was normal (Average oxygen saturation was 94%). Allergies and Home Medications Home medication list reviewed: Yes (no changes) Allergy and home medication list: Allergies acarbose Allergy (Verified 04/16/22 11:14) ROSS Inhibitors Allergy (Verified 04/16/22 11:14) sitagliptin [From Januvia] Adverse Reaction (Verified 04/16/22 11:14) Review of Systems Review of systems same as previous: Yes (no changes) Physical Exam Vital signs obtained and entered by: TRINIDAD Milton MA Blood Pressure: 120/70 (left arm) Cuff size: regular Heart Rate: 76 O2 Saturation: 96 Height: 5 ft 7 in Weight: 176 lb 9.6 oz Body Mass Index: 27.6 BMI Classification: Overweight Impression and Plan 1. Obstructive Sleep Apnea-Hypopnea Syndrome, mild, with lowest oxygen saturation of 84%. Obviously this is the cause of the patients symptoms of unrefreshed sleep, and excessive daytime sleepiness. Positive pressure therapy could benefit hypertension and diabetes. As mentioned above, the patient will be started on nasal autoCPAP therapy with pressure set at 4-15 cmH2O. Compliance guidelines also reviewed. A copy of compliance guidelines will be given for reference at check out. Because the apnea is more severe supine, I instructed to avoid sleeping supine using pillow positioning until able to start CPAP use. * Nasal auto CPAP therapy, pressure at 4-15 cm H2O. * Attempt to lose weight. * Avoid alcohol consumption near bedtime. * Avoid supine sleep until using CPAP. * The patient is again cautioned about driving until sleepiness completely resolves. * Return one month after CPAP obtained. I will assess response to therapy and compliance at that time. Counseling Topics: Weight loss health impact Visit Type: In Office Time Spent with Patient (minutes): 20 Provider Statement: I spent 100% of the Face to Face Visit with the patient with greater than 50% spent counseling the patient and coordination of care.
== END 2022-05-28 13:47 | disposition home or self-care (01) ==
LOC: SC 13:46
PROVIDERS: ATTEND Nurse Practitioner Family
DX: G47.33 Obstructive sleep apnea (adult) (pediatric) (principal)
CPT/HCPCS: 99212; 99213

== ENCOUNTER 2022-06-21 17:49 | Outpatient (CLI) | payer OTHER ==
[2022-06-21 18:31] LABS: BUN - BLOOD UREA NITROGEN 22 mg/dL (6-20); CALCIUM 8.8 mg/dL (8.5-10.3); CARBON DIOXIDE - CO2 29 mmol/L (21-32); CHLORIDE 100 mmol/L (101-111); CHOL/HDL RATIO 2.5 (<5.0); CHOLESTEROL 123 mg/dL; CREATININE 0.9 mg/dL (0.6-1.2); GFR - MDRD 90 (>89); GLUCOSE 90 mg/dL (70-100); HDL CHOLESTEROL 50 mg/dL; LDL CHOLESTEROL,CALCULATED 29 mg/dL; LDL/HDL RATIO 0.6 (<3.6); SODIUM 136 mmol/L (135-145); TRIGLYCERIDES 219 mg/dL; VLDL CHOLESTEROL 44 mg/dL
[2022-06-21 18:37] LABS: CREATININE,URINE 236.1 mg/dL; MICROALBUM/CREATININE RATIO,UR 5.9 ug/mg (<30.0); MICROALBUMIN,URINE 1.4 mg/dL (0-300.0)
[2022-06-21 21:15] LABS: ESTIMATED AVERAGE GLUCOSE 128 mg/dL (70-100); HEMOGLOBIN A1c% 6.1 % (4.27-6.07)
== END 2022-06-21 17:50 | disposition home or self-care (01) ==
LOC: LAB 17:49
PROVIDERS: ATTEND Nurse Practitioner
DX: E11.65 Type 2 diabetes mellitus with hyperglycemia (principal); E78.2 Mixed hyperlipidemia
CPT/HCPCS: 36415; 80048; 80061; 82043; 82570; 83036; 83721

== ENCOUNTER 2023-03-25 11:24 | Outpatient (CLI) | payer OTHER ==
[2023-03-25 11:48] LABS: BASOPHILS # (AUTO) 0.1 10^3/uL (0.0-0.1); BASOPHILS % (AUTO) 0.9 %; EOSINOPHILS # (AUTO) 0.3 10^3/uL (0.0-0.7); EOSINOPHILS % (AUTO) 3.7 %; HCT - HEMATOCRIT 43.2 % (42.0-52.0); HGB - HEMOGLOBIN 14.5 g/dL (14.0-18.0); LYMPHOCYTES # (AUTO) 2.5 10^3/uL (1.5-3.5); LYMPHOCYTES % (AUTO) 27.4 %; MEAN CORPUSCULAR HEMOGLOBIN 29.1 pg (27.0-31.0); MEAN CORPUSCULAR HGB CONC 33.6 g/dL (32.0-36.0); MEAN CORPUSCULAR VOLUME 86.6 fL (80.0-94.0); MEAN PLATELET VOLUME 9.7 fL (7.4-11.4); MONOCYTES # (AUTO) 0.9 10^3/uL (0.0-1.0); MONOCYTES % (AUTO) 9.9 %; NEUTROPHILS # (AUTO) 5.3 10^3/uL (1.5-6.6); NEUTROPHILS % (AUTO) 57.9 %; PLT - PLATELET COUNT 277 10^3/uL (130-450); RED BLOOD COUNT 4.99 10^6/uL (4.70-6.10); RED CELL DISTRIBUTION WIDTH 12.4 % (12.0-15.0); WHITE BLOOD COUNT 9.2 x10^3/uL (4.8-10.8)
[2023-03-25 12:03] LABS: ALBUMIN 4.6 g/dL (3.2-5.5); ALBUMIN/GLOBULIN RATIO 1.6 (1.0-2.2); BILIRUBIN,TOTAL 0.7 mg/dL (0.2-1.0); CALCIUM 9.2 mg/dL (8.5-10.3); CREATININE 0.9 mg/dL (0.6-1.3); POTASSIUM 4.4 mmol/L (3.5-4.5); TOTAL PROTEIN 7.4 g/dL (6.4-8.9)
[2023-03-25 12:19] LABS: THYROID STIMULATING HORMONE 1.54 uIU/mL (0.34-5.60)
[2023-03-25 12:55] LABS: ESTIMATED AVERAGE GLUCOSE 111 mg/dL (70-100); HEMOGLOBIN A1c% 5.5 % (4.27-6.07)
== END 2023-03-25 11:25 | disposition home or self-care (01) ==
LOC: LAB 11:24
PROVIDERS: ATTEND Registered Nurse
DX: I10 Essential (primary) hypertension (principal); E11.9 Type 2 diabetes mellitus without complications; E78.2 Mixed hyperlipidemia
CPT/HCPCS: 36415; 80053; 83036; 84443; 85025

== ENCOUNTER 2024-04-09 10:50 | Outpatient (CLI) | payer OTHER ==
[2024-04-09 11:08] LABS: BASOPHILS # (AUTO) 0.1 10^3/uL (0.0-0.1); BASOPHILS % (AUTO) 0.7 %; EOSINOPHILS # (AUTO) 0.4 10^3/uL (0.0-0.7); HCT - HEMATOCRIT 43.3 % (42.0-52.0); HGB - HEMOGLOBIN 14.8 g/dL (14.0-18.0); LYMPHOCYTES # (AUTO) 2.3 10^3/uL (1.5-3.5); LYMPHOCYTES % (AUTO) 25.4 %; MEAN CORPUSCULAR HEMOGLOBIN 29.7 pg (27.0-31.0); MEAN CORPUSCULAR HGB CONC 34.2 g/dL (32.0-36.0); MEAN CORPUSCULAR VOLUME 86.8 fL (80.0-94.0); MEAN PLATELET VOLUME 9.9 fL (7.4-11.4); MONOCYTES # (AUTO) 0.9 10^3/uL (0.0-1.0); MONOCYTES % (AUTO) 9.7 %; NEUTROPHILS # (AUTO) 5.4 10^3/uL (1.5-6.6); NEUTROPHILS % (AUTO) 60.1 %; PLT - PLATELET COUNT 255 10^3/uL (130-450); RED BLOOD COUNT 4.99 10^6/uL (4.70-6.10); RED CELL DISTRIBUTION WIDTH 12.1 % (12.0-15.0)
[2024-04-09 11:24] LABS: ALBUMIN 4.3 g/dL (3.2-5.5); ALBUMIN/GLOBULIN RATIO 1.5 (1.0-2.2); ALKALINE PHOSPHATASE 57 IU/L (42-121); ALT ALANINE AMINOTRANSFERASE 32 IU/L (10-60); AST ASPARTATE AMINOTRANSFERASE 18 IU/L (10-42); BILIRUBIN,TOTAL 0.7 mg/dL (0.2-1.0); BUN - BLOOD UREA NITROGEN 17 mg/dL (6-20); CALCIUM 9.2 mg/dL (8.5-10.3); CARBON DIOXIDE - CO2 30 mmol/L (21-32); CHLORIDE 101 mmol/L (101-111); CHOL/HDL RATIO 2.3 (<5.0); CHOLESTEROL 127 mg/dL; GFR - MDRD 79 (>89); GLUCOSE 129 mg/dL (74-104); HDL CHOLESTEROL 55 mg/dL; LDL CHOLESTEROL,CALCULATED 53 mg/dL; POTASSIUM 4.3 mmol/L (3.5-4.5); SODIUM 136 mmol/L (135-145); TOTAL PROTEIN 7.2 g/dL (6.4-8.9); TRIGLYCERIDES 93 mg/dL; VLDL CHOLESTEROL 19 mg/dL
[2024-04-09 11:27] LABS: CREATININE,URINE 123.7 mg/dL; MICROALBUM/CREATININE RATIO,UR 6.5 ug/mg (<30.0); MICROALBUMIN,URINE 0.8 mg/dL
[2024-04-09 11:36] LABS: THYROID STIMULATING HORMONE 1.14 uIU/mL (0.34-5.60)
[2024-04-09 13:45] LABS: ESTIMATED AVERAGE GLUCOSE 134 mg/dL (70-100); HEMOGLOBIN A1c% 6.3 % (4.27-6.07)
== END 2024-04-09 10:51 | disposition home or self-care (01) ==
LOC: LAB 10:50
PROVIDERS: ATTEND Registered Nurse
DX: I10 Essential (primary) hypertension (principal); E11.9 Type 2 diabetes mellitus without complications; E78.2 Mixed hyperlipidemia; N52.9 Male erectile dysfunction, unspecified
CPT/HCPCS: 36415; 80053; 80061; 82043; 82570; 83036; 83721; 84153; 84443; 85025

== ENCOUNTER 2024-04-27 12:01 | Outpatient (CLI) | payer OTHER ==
--- NOTE | 2024-04-27 13:55 | CT Report ---
PROCEDURE: Lung Cancer Screen INDICATIONS: HIST OF SMOKING TECHNIQUE: A CT scan of the chest was performed. Intravenous contrast media was not administered. Images were re corded and evaluated at appropriate window settings. Reformats: axial MIP of the chest, coronal and s agittal. For radiation dose reduction, the following was used: automated exposure control, adjustment of mA and/or kV according to patient size. COMPARISON: None. FINDINGS: Image quality: Excellent. Prior cancer history: No. Lungs and pleura: No pleural effusions. No pneumothorax. No acute consolidation. Minimal emphysema. 3 mm solid juxta pleural nodule at the posterior right lower lobe left lower lobe (4/166). Mediastinum: Heart size is normal. No pericardial effusion. No large vessel abnormality. No mediastin al adenopathy by size criteria. Mild coronary artery calcifications. Chest wall and lower neck: Thyroid is unremarkable. No axillary or supraclavicular adenopathy by size . Mild right greater than left gynecomastia. Bones: No aggressive osseous abnormality. Upper Abdomen: Unremarkable. IMPRESSION: Lung RAD: 2 - Benign. Recommendation: Continue annual screening in 12 Months with LDCT Non-Lung Significant Findings: None. Reviewed by: Darwin Treviño MD on 04/27/2024 1:54 PM PDT Approved by: Darwin Treviño MD on 04/27/2024 1:54 PM PDT Station ID: [id number]
== END 2024-04-27 12:02 | disposition home or self-care (01) ==
LOC: DI 12:01
PROVIDERS: ATTEND Registered Nurse
DX: Z12.2 Encounter for screening for malignant neoplasm of respiratory organs (principal); Z87.891 Personal history of nicotine dependence